=== PATIENT | female | born 1955 | race Caucasian/White ===

== ENCOUNTER 2021-04-09 04:47 | Day surgery (SDC) | payer BC ==
[2021-04-07 12:06] VITALS: BMI 22.7
[~2021-04-09 04:47] MED LIST: ACETAMINOPHEN 325 MG TABLET (FP) PO PRN
[2021-04-09] MEDS ORDERED: EPINEPHrine/PF 1 MG/1 ML (1:1,000) AMPULE ONE (07:12)
[2021-04-09] MEDS ORDERED: POVIDONE-IODINE 5% OPHTHALMIC PREP 30 ML SOLUTION ONE (07:12)
[2021-04-09] MEDS ORDERED: TETRACAINE 0.5% OPHTH SOLN 2 ML BOTTLE ONE ×2 (07:12→09:12)
[2021-04-09] MEDS ORDERED: LIDOCAINE HCL/PF 1% SDV 5ML VIAL ONE (07:12)
[2021-04-09] MEDS ORDERED: TROPICAMIDE 1% OPHTH SOLN 15 ML BOTTLE ONE (07:18)
[2021-04-09] MEDS ORDERED: KETOROLAC TROMETHAMINE 0.5% EYE DROP 1 DROP DROPS ONE (07:18)
[2021-04-09] MEDS ORDERED: OFLOXACIN 0.3% OPHTHALMIC SOLUTION 5 ML BOTTLE ONE (07:18)
[2021-04-09] MEDS ORDERED: CYCLOPENTOLATE HCL 1% OPHTH SOLN 2 ML BOTTLE ONE (07:18)
[2021-04-09] MEDS ORDERED: TETRACAINE 0.5% OPHTH SOLN 2 ML BOTTLE OS ONE ×2 (07:32→09:06)
[2021-04-09] MEDS ORDERED: POVIDONE-IODINE 5% OPHTHALMIC PREP 30 ML SOLUTION OS ONE ×2 (07:32→09:11)
[2021-04-09] MEDS ORDERED: LIDOCAINE HCL 1% PRESERVATIVE FREE - 30ML VIAL IO ONE ×2 (07:33→09:20)
[2021-04-09] MEDS ORDERED: CHONDROITIN SU A/HYALUR SOD 1 KIT IO ONE ×2 (07:33→09:24)
[2021-04-09] MEDS ORDERED: EPINEPHrine 1:1,000 1 MG/1 ML - 30ML VIAL (INJECTION) SQ ONE ×2 (07:33→09:32)
[2021-04-09] MEDS ORDERED: BSS (NA/CA/MG/K) BALANCED SALT SOLUTION OPHTH SOLN 15 ML BOTTLE OS ONE ×2 (07:35→09:24)
[2021-04-09] MEDS: CYCLOPENTOLATE HCL 1% OPHTH SOLN 2 ML BOTTLE OP SCH ×3 (07:35→07:45)
[2021-04-09] MEDS: PHENYLEPHRINE 2.5% OPHTH SOLN 15 ML BOTTLE OP SCH ×3 (07:35→07:45)
[2021-04-09] MEDS: OFLOXACIN 0.3% OPHTHALMIC SOLUTION 5 ML BOTTLE OP SCH ×3 (07:35→07:45)
[2021-04-09] MEDS: TROPICAMIDE 1% OPHTH SOLN 15 ML BOTTLE OP SCH ×3 (07:35→07:45)
[2021-04-09] MEDS: KETOROLAC TROMETHAMINE 0.5% EYE DROP 1 DROP DROPS OP SCH ×3 (07:35→07:45)
[2021-04-09] MEDS ORDERED: MIDAZOLAM HCL 2 MG/2 ML SINGLE DOSE VIAL ONE (09:08)
[2021-04-09 12:01] VITALS: BP 110/68; PULSE 68; TEMP 97.8
== END 2021-04-09 12:02 | disposition home or self-care (01) ==
LOC: JASU-SURG 04:47
PROVIDERS: ATTEND Ophthalmology
PROC: 08RK3JZ Replacement of Left Lens with Synthetic Substitute, Percutaneous Approach (ICD-10-PCS; principal; 2021-04-09 09:00)
DX: H26.9 Unspecified cataract (principal)